=== PATIENT | female | born 1960 | race Hispanic/Latino ===

== ENCOUNTER → 2017-12-02 | Outpatient (CLI) | payer OTHER ==
--- NOTE | 2017-12-03 15:48 | MAM ---
EXAM DESCRIPTION: 3D Screening BILATERAL : Digital Mammography. CLINICAL HISTORY: 57 years Female SCREENING . No complaints. No personal history of breast cancer. Mother with breast cancer. Childbirth. Postmenopausal. No HRT. Lifetime risk of developing breast cancer (Tyrer-Cuzick model) is 7.5 %. COMPARISON: Baseline study at this facility. No prior reports available. TECHNIQUE: Bilateral CC and MLO projection full-field images, Digital tomosynthesis mammographic technique. Bilateral digital 2-D full-field MLO images. CAD not utilized. FINDINGS: The breast parenchymal density pattern is: Scattered areas of fibroglandular density. Heterogeneously dense breast tissue, which may obscure small masses. Extremely dense breast tissue, which lowers the sensitivity of mammography. No skin thickening or nipple retraction. Oval-shaped circumscribed mass slightly denser than the surrounding fibroglandular tissues is visible in the retroareolar left breast in May be contiguous or continuous with the nipple or retroareolar ducts. No calcifications. No new focal, stellate mass or density, focal asymmetry , and no suspicious microcalcifications right breast. IMPRESSION: BI-RADS CATEGORY: 0 - INCOMPLETE- Need additional imaging evaluation. FOLLOW-UP: Recall for additional imaging: Targeted left breast ultrasound of the region of interest. Written communication concerning the IMPRESSION and Follow-up, will be mailed to the patient and referring health care provider. Electronically signed by: Joel Pichardo MD 12/03/2017 3:46 PM CDT
== END ==
LOC: MAMMO 14:00
PROVIDERS: ATTEND Family Medicine
DX: Z12.31 Encounter for screening mammogram for malignant neoplasm of breast (principal)

== ENCOUNTER → 2017-12-17 | Outpatient (CLI) | payer OTHER ==
--- NOTE | 2017-12-17 14:20 | US ---
EXAM DESCRIPTION: Breast,Left: Ultrasound CLINICAL HISTORY: 57 yearsFemaleLT BREAST COMPARISON: Digital screening tomosynthesis bilateral breast 12/02/2017. TECHNIQUE: Transcutaneous scanning of the left breast utilizing davenport-scale and Doppler modes. Scanning performed by the dispatcher relay and Dr. Pichardo. FINDINGS: Scanning in the retroareolar left breast. Palpable ridge of tissue at the 400 clock position from the nipple. Circumscribed and lobulated margin mass corresponding to this palpable lesion. Heterogeneous hypoechoic tissues with parallel orientation and posterior acoustic shadowing. Dimensions are 2.1 x 1.9 cm, and the mass is not vascular. No adjacent distinct solid masses or cysts. No large calcifications or parenchymal edema. No overlying skin changes. No abnormal vascularity. IMPRESSION: BI-RADS CATEGORY 4: SUSPICIOUS. SUB-CATEGORY 4A - LOW SUSPICION FOR MALIGNANCY. Surgical consultation and tissue diagnosis should be considered. The FINDINGS and follow-up plan were reviewed in person with the patient following the examination. Written communication explaining the IMPRESSION and follow-up will be mailed to the patient and referring care provider. CRITICAL COMMUNICATION: The critical value was discussed by Ms. Dejah Slade, Breast Route Sales Delivery Drivers Supervisor at [facility], by phone with Ms. Alma Puckett, RN, Nurse Navigator for [facility] at [facility] Breast Cancer Screening Program, at approximately 1400 hours, on December 17, 2017 Electronically signed by: Joel Pichardo MD 12/17/2017 2:18 PM CDT
== END ==
LOC: MAMMO 13:00
PROVIDERS: ATTEND Family Medicine
DX: R92.8 Other abnormal and inconclusive findings on diagnostic imaging of breast (principal)

== ENCOUNTER → 2018-01-13 | Outpatient (CLI) | payer OTHER ==
--- NOTE | 2018-01-13 09:56 | OP ---
DATE OF PROCEDURE: 01/13/18 PREOPERATIVE DIAGNOSIS: 1. Abnormal left mammogram with subareolar mass. POSTOPERATIVE DIAGNOSIS: 1. Abnormal left mammogram with subareolar mass. PROCEDURE: 1. Sonographically guided needle core biopsy, subareolar mass. SURGEON: Dariusz Guevara MD. REPLENISHMENT ASSOCIATE: None. ANESTHESIA: Local infiltration of 1% lidocaine. INDICATION: The patient is a 57-year-old female who on routine mammography was found to have a mass with shadowing in the subareolar area of the left breast. She was brought to the Ultrasound Suite today for sonographically guided biopsy after the risks, benefits and alternatives to the procedure were discussed and accepted. FINDINGS: The ultrasound did reveal the biopsy needle within the mass with multiple passes. Specimens were adequate. PROCEDURE: The patient was brought to the Ultrasound Suite. Her left hip and shoulder were elevated with a pillow. The left breast was inspected using the ultrasound device. The lesion was identified. The breast lateral to the ultrasound probe was prepped with Betadine and draped. Infiltration of anesthesia was obtained with 1% lidocaine. A stab wound was then made with a 15 blade and then using the biopsy needle, multiple passes were made. Specimens were obtained. Hemostasis was obtained with pressure. A single suture of 4-0 Prolene closed the biopsy site. Sterile pressure dressing was applied. The patient tolerated the procedure well. Estimated blood loss was approximately 5 mL. All sponge, needle and instrument counts were correct. #[id number] [facility]
--- NOTE | 2018-01-13 14:14 | US ---
EXAM DESCRIPTION: Biopsy/Needle Guidance: Ultrasound. CLINICAL HISTORY: 57 years Female LEFT BREAST MASS COMPARISON: Diagnostic ultrasound of the left breast on 12/17/2017. TECHNIQUE: The procedure was performed by Dr. Guevara. Repeat ultrasound localized left breast mass in the retroareolar breast. Sterile preparation. Sterile ultrasound guidance during needle passes. FINDINGS: Again visualized is 2.1 x 1.9 cm heterogeneous hypoechoic mass with parallel features partially circumscribed margins and significant posterior shadowing. Multiple images taken during the procedure show the echogenic needle within the mass. IMPRESSION: Successful, ultrasound-guided fine needle core biopsy of left breast mass. Adequate core samples were obtained. Pathology examination at remote facility, results pending. Electronically signed by: Joel Pichardo MD 01/13/2018 2:12 PM CDT
== END ==
LOC: US 08:00
PROVIDERS: ATTEND Surgery
DX: N63.23 Unspecified lump in the left breast, lower outer quadrant (principal); R92.8 Other abnormal and inconclusive findings on diagnostic imaging of breast